=== PATIENT | male | born 1975 | race Caucasian/White ===

== ENCOUNTER 2024-11-26 21:41 | Emergency (ER) | payer OTHER ==
[~2024-11-26] VITALS: Ht 165.1 cm; Wt 68.0 kg
[2024-11-26 22:20] VITALS: TEMP 36.8; O2SAT 99
[2024-11-27 00:24] VITALS: TEMP 98.3
[2024-11-27] MEDS: ACETAMINOPHEN 325MG TABLET PO STA (00:24)
[2024-11-27] MEDS: KETOROLAC 30MG/ML VIAL IM STA (00:25)
[2024-11-27] MEDS ORDERED: TOPUD PO (01:06)
[2024-11-27] MEDS ORDERED: IBUP-2029 MT (01:06)
[2024-11-27 01:16] VITALS: BP 141/92; PULSE 62; RESP 14; O2SAT 98
== END 2024-11-27 01:18 | disposition home or self-care (01) ==
LOC: ER 21:41
DX: M72.2 Plantar fascial fibromatosis (principal); M19.072 Primary osteoarthritis, left ankle and foot; Z98.890 Other specified postprocedural states
CPT/HCPCS: 99283; 73630; 96372; J1885